=== PATIENT | female | born 1970 | race Caucasian/White ===

== ENCOUNTER 2023-01-14 18:48 | Emergency (ER) | payer OTHER, SELFPAY ==
--- NOTE | ~2023-01-14 | US_ITS ---
EXAMINATION: US VENOUS ULTRASOUND WITH DOPPLER LOWER EXTREMITY, LEFT CLINICAL INFORMATION: Left lower extremity pain. COMPARISON: None available. TECHNIQUE: Ultrasound of the deep veins is performed from the hip to the calf with compression sonography and color and pulse Doppler assessment. Spectral analysis with color-flow imaging is performed. FINDINGS: There is normal venous compression and respiratory variation and augmented flow. The visualized left common femoral vein, superficial femoral vein, profunda femoral vein, popliteal vein, and the trifurcation region shows no evidence of deep venous thrombosis. There is no significant popliteal fossa cyst. If the patient's symptoms persist, followup ultrasound in 5 days 7 days might be of value to exclude proximal propagation from a non-visualized calf vein. US/US venous duplex LE IMPRESSION: No DVT demonstrated in the left lower extremity.
[2023-01-14 19:01] VITALS: BP 145/87; PULSE 81; RESP 16; TEMP 36.4; O2SAT 100; BMI 29.3
--- NOTE | 2023-01-14 20:19 | ED.LOWEXIN ---
HPI - Extremity Injury (Lower) General Chief Complaint: Extremity Injury, Lower Stated Complaint: L Calf pain Time Seen by Provider: 01/14/23 19:25 Source: patient Mode of arrival: ambulatory Limitations: no limitations History of Present Illness HPI Narrative: Patient is a 52 year old female with no significant past medical history presenting with left calf pain after landing on it abnormally at a dance rehearsal. She said that when she landed on her left extremity she heard a pop sound and has since had significant pain in her left calf. She has been able to ambulate however reports that this significantly increases pain. She has not taken any medications for pain. She denies any associated symptoms including chest pain, SOB, nausea, vomiting. Related Data Previous Rx's Medication Instructions Recorded ketorolac 10 mg tablet 10 mg PO TID PRN pain 5 days #15 01/14/23 tabs Allergies Allergy/AdvReac Type Severity Reaction Status Date / Time aspirin AdvReac Nausea and Verified 01/14/23 19:01 Vomiting Review of Systems Review of Systems: Constitutional : No Weight loss, No Fever, No Chills, No Fatigue, No Malaise Eyes: No Eye Pain, No Swelling, No Redness Cardiovascular : No Chest Pain, No SOB, No Dyspnea on Exertion, No Orthopnea, No Edema, No Palpitations Respiratory : No Cough, No Sputum, No Wheezing Gastrointestinal : No Nausea, No Vomiting, No Diarrhea, No Constipation, No abdominal Pain, No Hematochezia, No Melena Genitourinary : No Dysuria, No Urinary Frequency, No Hematuria, Musculoskeletal : + left calf pain, No joint pain, No Joint Swelling Skin : No Skin Lesions, No rash Neuro : No Weakness, No Numbness, No Dizziness, No Headache Psych : No Anxiety/Panic, No Depression All other systems reviewed and are negative Yes all other systems are reviewed and are negative [facility] Past Medical History Attestation statement: The following information was validated with the patient. Source: old records reviewed and nursing notes reviewed Social History Social History Advance Directives: No Advance Directives Information Provided: No Physical Exam Vital Signs: Vital Signs: Last Vital Signs Temp 97.5 F 01/14/23 19:01 Pulse 72 01/14/23 21:15 Resp 16 01/14/23 21:15 BP 143/75 H 01/14/23 21:15 Pulse Ox 98 01/14/23 21:15 O2 Del Method Room Air 01/14/23 21:15 BMI result Body Mass Index 29.3 Vital signs stable Appearance: Alert.? Oriented X3.? No acute distress.? Head: Normocephalic, atraumatic, no step-offs or deformities Eyes: Pupils equal, round and reactive to light.? CVS: Normal heart rate and rhythm.? Pulses normal.? Respiratory: No respiratory distress.? Breath sounds normal.? Abdomen: Soft and nontender.? Skin: Skin warm and dry.? Normal skin color.? Normal skin turgor.? Extremities: No lower extremity edema.? + left calf ttp. 5/5 strength to bilateral upper and lower extremities. Negative Hess's test bilaterally. 2+ dorsalis pedis, anterior tibialis, posterior tibialis pulses equal bilateral. Normal sensation distally. Normal capillary refill less than 2 seconds to bilateral lower extremity digits. Neuro: Oriented X 3.? No motor deficit.? No sensory deficit. CN 2-12 intact Course Reevaluation(s) Reevaluation #1: Ultrasound unremarkable. Will give crutches and will have her follow-up with the orthopedic team. Educated patient on diagnosis and treatment plan, answered all question, patient verbalizes understanding. At this time patient will be discharged home, advised to return with new or worsening symptoms. Educated on worrisome signs and symptoms and when to return. At this time I feel comfortable discharge home. Time: 22:24 Medications Administered Discontinued Medications Generic Name Dose Route Start Last Admin Trade Name Abhiq PRN Reason Stop Dose Admin Acetaminophen 650 mg 01/14/23 20:54 01/14/23 21:13 Acetaminophen 325 Mg Tablet PO 01/14/23 20:55 650 mg ONCE ONE Administration Ketorolac Tromethamine 30 mg 01/14/23 21:33 01/14/23 22:00 Ketorolac Tromethamine 15 Mg/Ml Vial IM 01/14/23 21:34 30 mg ONCE ONE Administration Medical Decision Making Medical Decision Making MDM Narrative: 52 year old female presents w/ L calf pain X few hours dance realted injury PE- No lower extremity edema.? + left calf ttp. 5/5 strength to bilateral upper and lower extremities. Negative Hess's test bilaterally. 2+ dorsalis pedis, anterior tibialis, posterior tibialis pulses equal bilateral. Normal sensation distally. Normal capillary refill less than 2 seconds to bilateral lower extremity digits. Concerns for sprain/strain/contusion. Unlikely calf tendon tear rupture. Concerns for possible ruptured Gómez's cyst. Unlikely DVT, arterial occlusion. No signs of threatened limb or neurovascular compromise. Plan crutches, Toradol, ultrasound was ordered from triage. Differential Diagnosis Differential Diagnoses: The differential diagnosis associated with the presentation includes Concerns for sprain/strain/contusion. Unlikely calf tendon tear rupture. Concerns for possible ruptured Gómez's cyst. Unlikely DVT, arterial occlusion. No signs of threatened limb or neurovascular compromise. Admission/Observation Consideration of admission/observation: Escalation of care including admission/observation considered Lab Data MDM Lab Attestation statement: I reviewed the patient's lab results. Independent Interpretation I performed an independent interpretation of an: Ultrasound (US/US venous duplex LE LT IMPRESSION: No DVT demonstrated in the left lower extremity.) Radiology Impression Discussion of test interpretation with radiology: I have reviewed the radiologist's reading. Core Measures AMI core measures followed: Yes Measure exclusions: not indicated Critical Care Time Critical Care Time Critical Care Time: No Discharge Plan Discharge Clinical Impression: Pain of left calf Patient Disposition: Home, Self-Care Instructions: Leg Cramps (ED), Leg Pain (ED) Additional Instructions: Take your medications as prescribed. If you were prescribed antibiotics today, it is important that you take your medication to their entirety, do not skip any doses, do not finish them early. Follow-up with your primary care provider this week. Return to the emergency department with new or worsening symptoms. Such as fevers, chills, chest pain, shortness of breath, nausea, vomiting, dizziness, headache, vision changes, lethargy In case of emergency call 911 Toradol has been sent to your pharmacy, you tolerated this well in the department. Please take this as prescribed do not take this with ibuprofen, or other NSAIDs, do not mix this with alcohol. Side effects of this medication including increased risk for bleeding and possible kidney injury. Prescriptions: New ketorolac 10 mg tablet 10 mg PO TID PRN (Reason: pain) 5 Days Qty: 15 0RF Referrals: [facility] [place] [facility] [Provider Group] - 1 week Naomi Lanier [Primary Care Provider] - 2 days Stand Alone Forms: Work/School Release Interventions: ED Discharge Assessment Last Done: 01/14/23 22:18 Discharge Date/Time: 01/14/23 22:19
[2023-01-14] MEDS: Acetaminophen 325 MG TABLET 650 MG PO (21:13)
[2023-01-14 21:15] VITALS: BP 143/75; PULSE 72; RESP 16; O2SAT 98
--- NOTE | 2023-01-14 21:18 | PC.NURSE ---
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 pt reports feeling popping sensation.
[2023-01-14] MEDS: Ketorolac Tromethamine 15 MG/ML VIAL 30 MG IM (22:00)
--- NOTE | 2023-01-14 22:18 | PC.NURSE ---
pt medicated per OCT for 10/10 left calf pain, compression wrap applied.
== END 2023-01-14 22:19 | disposition home or self-care (01) ==
PROVIDERS: Emergency Provider Internal Medicine; PCP Registered Nurse
DX: M79.662 Pain in left lower leg (principal)
CPT/HCPCS: 93971; 96372; 99284; J1885